=== PATIENT | male | born 1995 | race American Indian/Alaskan Native ===

== ENCOUNTER 2021-02-09 14:35 | Emergency (ER) | payer SELFPAY ==
--- NOTE | 2021-02-09 15:53 | Emergency Department Report ---
ED Psych HPI - General Chief Complaint: Psych Stated Complaint: MH CRISIS Time Seen by Provider: 02/09/21 15:15 Source: patient Mode of arrival: Ambulatory - History of Present Illness Initial Comments: 25-year-old male, history of autism, oppositional defiant disorder, presents to ED for mental health evaluation. Patient brought in by mother due to violent behavior at home. States patient has been punching and kicking holes in the wall. Mother states she also has an 11-year-old son who lives with her as well. States she is here for her 11-year-old safety. Patient has also been verbalizing suicidal ideations to mother, although he denies it to me. Complaint: other -: days(s) (3) Associated Psychiatric Symptoms: suicidal ideation, other (Violent behavior) Quality: constant Improves With: none Worsens With: none Associated Symptoms: denies other symptoms Treatments Prior to Arrival: none - Related Data Allergies Allergy/AdvReac Type Severity Reaction Status Date / Time No Known Allergies Allergy Unverified 02/09/21 16:57 ED Review of Systems ROS: Stated complaint: MH CRISIS Other details as noted in HPI Comment: All other systems reviewed and negative Psychiatric: as per HPI ED Physical Exam - General Limitations: No Limitations General appearance: alert, in no apparent distress - Head Head exam: Present: atraumatic, normocephalic - Eye Eye exam: Present: normal appearance, EOMI - ENT ENT exam: Present: mucous membranes moist - Neck Neck exam: Present: normal inspection - Respiratory Respiratory exam: Present: normal lung sounds bilaterally. Absent: respiratory distress - Cardiovascular Cardiovascular Exam: Present: regular rate, normal rhythm - GI/Abdominal GI/Abdominal exam: Absent: distended - Extremities Exam Extremities exam: Present: normal inspection - Neurological Exam Neurological exam: Present: alert, oriented X3 - Psychiatric Psychiatric exam: Present: flat affect - Skin Skin exam: Present: warm, dry, intact, normal color ED Course Vital Signs 02/09/21 02/09/21 02/09/21 14:48 15:56 17:00 Temperature 98 F Pulse Rate 80 Respiratory 17 20 Rate Blood Pressure 126/82 Blood Pressure [Left] O2 Sat by Pulse 98 100 Oximetry 02/09/21 02/09/21 02/10/21 22:16 23:40 03:49 Temperature 98.7 F 98.6 F Pulse Rate 67 60 Respiratory 16 16 16 Rate Blood Pressure Blood Pressure 111/69 116/85 [Left] O2 Sat by Pulse 100 100 100 Oximetry 02/10/21 02/10/21 09:54 10:22 Temperature 98.2 F Pulse Rate 79 Respiratory 18 Rate Blood Pressure Blood Pressure 108/80 [Left] O2 Sat by Pulse 100 100 Oximetry ED Medical Decision Making - Lab Data Result diagrams: 02/09/21 15:29 02/09/21 15:29 - Medical Decision Making Patient medically clear for mental health assessment. Will dispo per psych. Critical care attestation.: If time is entered above; I have spent that time in minutes in the direct care of this critically ill patient, excluding procedure time. ED Disposition Clinical Impression: Autism, Passive suicidal ideations Disposition: HOME / SELF CARE / HOMELESS Is pt being admited?: No Condition: Stable Additional Instructions: OUTPATIENT MENTAL HEALTH RESOURCES [employer], [facility] Jimy Field MD: [address] [facility] [address] [place] [address] [place] [address] [facility]: [facility] [address] [place] [address] [place] [address] [phone] [facility]: [facility] Healthcare: [address] [place] [address] [address] [place] [address] [place] [address] [facility] [address] [facility]: Keaton Cortez MD: [id number] [facility] [address] [facility] [id number] [facility]: [address] [place], [place] [id number] [phone] [place] CRISIS AND ACCESS LINE: Referrals: RUSTY VIDALES MD [Primary Care Provider] - 3-5 Days
[2021-02-09 16:02] LABS: BUN/Creatinine Ratio 15; Blood Urea Nitrogen 12 mg/dL (9-20); Calcium 9.1 mg/dL (8.4-10.2); Hemolysis Index 20
[2021-02-09 16:14] LABS: Basophils % (Auto) 1.1 % (0.0-1.8); Eosinophils # (Auto) 0.1 K/mm3 (0.0-0.4); Eosinophils % (Auto) 1.7 % (0.0-4.3); Hematocrit 45.9 % (35.5-45.6); Hemoglobin 14.8 gm/dl (11.8-15.2); Lymphocytes # (Auto) 1.2 K/mm3 (1.2-5.4); Mean Corpuscular HGB Conc 32 % (32-34); Mean Corpuscular Volume 88 fl (84-94); Monocytes # (Auto) 0.3 K/mm3 (0.0-0.8); Monocytes % (Auto) 8.6 % (0.0-7.3); Platelet Count 234 K/mm3 (140-440); Red Blood Count 5.23 M/mm3 (3.65-5.03); Red Cell Distribution Width 13.3 % (13.2-15.2)
[2021-02-09 17:11] LABS: Bilirubin,Urine NEG (Negative); Blood,Urine NEG (Negative); Color,Urine Yellow (Yellow); Protein,Urine <15 mg/dL mg/dL (Negative); Urobilinogen,Urine < 2.0 mg/dL (<2.0); WBC,Urine < 1.0 /HPF (0.0-6.0)
[2021-02-09 17:30] LABS: Amphetamine Screen,Urine Negative; Benzodiazepines Screen,Urine Negative; Cannabinoid Screen,Urine Negative; Cocaine Screen,Urine Negative; Methadone Screen,Urine Negative; Opiate Screen,Urine Negative
[2021-02-09] MEDS ORDERED: ZIPRASIDONE MESYLATE 20 MG VIAL IM ONE (18:00)
[2021-02-09] MEDS ORDERED: LORazepam 2 MG/ML VIAL IM ONE (18:00)
[2021-02-10 09:55] VITALS: BP 108/80
--- NOTE | 2021-02-10 10:39 | Consultation ---
History of Present Illness - Reason for Consult Consult date: 02/10/21 Reason for consult: Mental health evaluation - History of Present Psychiatric Illness Gene Voss is a 25 year old male with history of Autism. In my interview with the patient, he is calm, alert and oriented x3. The patient endorses depression states it has been going on for about a year. The patient reports symptoms such as sadness, helplessness, and isolating." He states he feels lonely and "freaking out, people don't listen to me, and there is problem with communication, nothing positive in my whole life." The patient is not receptive to psychotropic medications but states he is open to attending therapy. Diagnoses: Autism Suicide attempts or Self-harm behavior: Denies Prior psychiatric hospitalizations: Denies Substance Abuse history:Denies Previous psychiatric medications tried: could not recall Outpatient treatment: Denies PAST MEDICAL HISTORY: None reported or document Family Psychiatric History: None reported or documented SOCIAL HISTORY Marital Status: Single Living Arrangements: Lives with mother Employment Status: Disabled Access to guns/weapons: Denies Education: some college History of Abuse: Denies Legal History: unknown REVIEW OF SYSTEMS Constitutional: Negative for weight loss ENT: Negative for stridor Respiratory: Negative for cough or hemoptysis All other systems reviewed and are negative MENTAL STATUS EXAMINATION General Appearance and Behavior: Age appropriate, good hygiene, wearing appropriate clothes. calm, cooperative Cooperation: Cooperative Psychomotor Behavior: Psychomotor normal Mood: Depresss Affect and affective range: congruent with stated mood Thought Process: goal directed Thought Content:Not suicidal Speech: normal tone and pace Suicidal Ideation: Denies Homicidal Ideation: Denies Hallucinations: Denies Delusions: None elicited Impulse Control: Normal Insight and Judgment: Limited insight and poor judgment Memory: Limited Attention: attentive Orientation: a/o x 3 Assessment (1)Autism (2) Major depressive disorder Current Visit: Yes Status: Acute Treatment Plan Continue previously prescribed medications. The patient to comply with previously prescribed medications Risks, benefits and alternatives of medications discussed with the patient, questions answered and consent obtained from patient. PSYCHOTHERAPY: Supportive psychotherapy provided MEDICAL: Per primary team DELIRIUM PRECAUTIONS: Please re-orient patient frequently, keep lights on during the day, and minimize benzodiazepines and opiates as these medications could worsen patient's confusion. VP SOFTWARE SUPPORT: Defer to primary DISPOSITION: Do not recommend acute psychiatric inpatient treatment. The patient understands that if SI/HI are to arise he is to seek immediate assistance. The assesor will provide patient with psychiatric out patient resources. The sitter to give the patient resources and safety plan Will sign off. Thanks Case staffed with Dr. Dewitt Medications and Allergies Medications and Allergies Allergies Allergy/AdvReac Type Severity Reaction Status Date / Time No Known Allergies Allergy Unverified 02/09/21 16:57 Mental Status Exam - Vital signs Last Vital Signs Temp 98.2 F 02/10/21 09:54 Pulse 79 02/10/21 09:54 Resp 18 02/10/21 09:54 BP 108/80 02/10/21 09:54 Pulse Ox 100 02/10/21 10:22 Results Result Diagrams: 02/09/21 15:29 02/09/21 15:29 Abnormal lab results 02/09/21 02/09/21 02/09/21 Range/Units 15:29 15:29 15:29 WBC 3.3 L (4.5-11.0) K/mm3 RBC 5.23 H (3.65-5.03) M/mm3 Hct 45.9 H (35.5-45.6) % Lymph % (Auto) 37.0 H (13.4-35.0) % [place] % (Auto) 8.6 H (0.0-7.3) % Seg Neutrophils # 1.7 L (1.8-7.7) K/mm3 Salicylates < 0.3 L (2.8-20.0) mg/dL Acetaminophen 5.0 L (10.0-30.0) ug/mL All other labs normal.
--- NOTE | 2021-02-10 11:50 | Event Note ---
Date: 02/10/21 Patient has been evaluated by psychiatrist and mental health worker patient is stable for discharge patient is autistic patient is in no acute distress.
== END 2021-02-10 12:45 | disposition home or self-care (01) ==
LOC: EDBD → ED 14:35 → EEVIPCON 14:35 → ED 02-10 12:45
DX: R45.6 Violent behavior (principal); F84.0 Autistic disorder
CPT/HCPCS: 36415; 80048; 80307; 80320; 81001; 85025; 99284; G0480